=== PATIENT | male | born 1950 | race Two or more races ===

== ENCOUNTER 2024-05-26 11:03 | Day surgery (SDC) | payer MEDICARE, MEDICAID ==
[~2024-05-26] VITALS: Ht 170.2 cm; Wt 89.4 kg
[~2024-05-26 11:03] MED LIST: GABA-339 PO; HYDR-4798 PO; MORP15TA PO
[2024-05-26] MEDS ORDERED: IODIXANOL 320MG/ML 100ML BTL IV ONE (13:08)
[2024-05-26] MEDS ORDERED: fentaNYL CITRATE 100 MCG/2 ML VL ONE (13:12)
[2024-05-26] MEDS ORDERED: MIDAZOLAM HCL 2MG/2ML 2ml VIAL (1mg/ml) ONE (13:12)
[2024-05-26] MEDS ORDERED: LIDOCAINE 2%HCL (LOCAL ANESTH.) INJ 20ML MDV ONE (13:13)
[2024-05-26] MEDS ORDERED: VERAPAMIL 2.5MG/ML INJ 2ML VIAL IV ONE (13:14)
[2024-05-26] MEDS ORDERED: ANGIOMAX 250 MG VIAL IV ONE (13:15)
[2024-05-26] MEDS ORDERED: SODIUM CHL 0.9% 0 ML ONE (13:15)
[2024-05-26] MEDS ORDERED: HEPARIN SODIUM (PORCINE) 5000 UNITS/ML 1ML VIAL ONE (13:46)
--- NOTE | 2024-05-26 13:50 | DVHOP2 ---
Operative Report Operative Report CARDIAC SERVICE ORDER EXPEDITER PROCEDURE REPORT [place], [place] Date of Service: 05/26/24 Aeronautical Engineering Teacher: Ailyn Simpson MD PROCEDURES PERFORMED: Coronary angiogram, left heart catheterization, conscious sedation administration and supervision, less than 15 minutes; fluoroscopy use and interpretation. PREOPERATIVE DIAGNOSES: Abnormal stress test with CCS class 3 angina, POSTOP DIAGNOSIS: mild cad DESCRIPTION OF PROCEDURE: The patient or appropriate family signed informed consent understanding the risks, benefits and alternatives of the procedure, they wished to proceed. The patient was brought to the cardiac crime lab technician [place] The patient was prepped in a sterile fashion. Sedation was used per cardiac cath protocol. I administered 2 mL of 2% lidocaine to the right wrist. With an antegrade front wall puncture. I cannulated the right radial artery and placed a 6-[place] Glidesheath slender. Next, an intra-arterial spasmolytic was administered. Next, a - 6[place] catheteand were used for coronary angiogram and LVEDP measurement and pressure pullback. At the completion of procedure, all guides and wires were removed, and there were no immediate complications. 4000 U of IV heparin given. FINDINGS: RCA: Moderate vessel off the right sinus of Valsalva, there is no severe flow limiting stenosis. RPL has mid vessel 30-% stenosis LEFT MAIN: Moderate size left main, it bifurcates into LAD and circumflex. no severe stenosis. CIRCUMFLEX: Moderate caliber vessel coming off the left main with no flow limiting stenosis. LAD: LAD is a moderate caliber vessel coming of the left main. no severe stenosis. diffuse luminal irregularities noted in midportion. moderate D1 is free of severe disease LVEDP of 8 mmhg CONCLUSIONS: 1. mild CAD PLAN: Aggressive risk factor modification and medical management for the patient. AILYN SIMPSON MD May 26, 2024 13:50
[2024-05-26 14:00] VITALS: BP 151/91; PULSE 63; RESP 14; O2SAT 93
[2024-05-26 14:15] VITALS: BP 165/92; PULSE 67; RESP 18; O2SAT 90
[2024-05-26 14:30] VITALS: BP 134/83; PULSE 68; RESP 19; O2SAT 90
[2024-05-26 14:45] VITALS: BP 127/85; PULSE 62; RESP 15; O2SAT 91
[2024-05-26 15:00] VITALS: BP 136/85; PULSE 53; RESP 14; O2SAT 93
[2024-05-26 15:45] VITALS: BP 131/92; PULSE 61; RESP 11; O2SAT 94
--- NOTE | 2024-05-28 08:37 | ECG ---
[facility] Test Date: 2024-05-26 Test Time: 12:50:39 Pat Name: ZEUS MARINELLI Department: Room: Gender: M Extension Course Coordinator: : 1950 Requested By: AILYN SIMPSON Order Number: [id number] Reading MD: Jerome Adam Measurements Intervals Rousseau Rate: 62 P: 69 [place]: 204 QRS: -11 QRSD: 82 T: 36 QT: 442 QTc: 448 Interpretive Statements Sinus rhythm with occasional premature ventricular complexes Septal infarct , age undetermined Electronically Signed On 05-30-2024 13:27:10 PST by Jerome Adam Please click the below link to view image of tracing.
== END 2024-05-26 15:55 | disposition home or self-care (01) ==
LOC: CATH 11:03
PROVIDERS: ATTEND Internal Medicine
DX: I25.118 Atherosclerotic heart disease of native coronary artery with other forms of angina pectoris (principal); R07.89 Other chest pain; R93.49 Abnormal radiologic findings on diagnostic imaging of other urinary organs; I10 Essential (primary) hypertension; E78.5 Hyperlipidemia, unspecified; G89.29 Other chronic pain; E66.9 Obesity, unspecified; C61 Malignant neoplasm of prostate; Z79.899 Other long term (current) drug therapy; Z98.890 Other specified postprocedural states; Z68.30 Body mass index [BMI] 30.0-30.9, adult
CPT/HCPCS: 93005; 93458; C1894; J1644; J2250; J3010; Q9967; 99152